=== PATIENT | male | born 1970 | race Caucasian/White ===

== ENCOUNTER 2021-02-02 19:59 | Inpatient (IN) ==
[2021-02-03] MEDS ORDERED: Artificial Tears SOLN 15 ML BOTTLE BOTH EYES PRN (01:15)
[2021-02-03] MEDS ORDERED: Naloxone 0.4 MG/ML INJ IVP PRN (01:20)
[2021-02-03] MEDS ORDERED: 0.9 % Sodium Chloride 1,000 ML ONE (01:21)
[2021-02-03] MEDS: FentaNYL (PF) 1,000 MCG/100 ML IV.SOLN IVC SCH ×4 (02:00→20:54)
[2021-02-03] MEDS: Cisatracurium 200 MG in 0.9 % Sodium Chloride 180 ML IVC SCH ×3 (02:00→23:07)
[2021-02-03] MEDS ORDERED: D5% in Water 1,000 ML IVC PRN (02:15)
[2021-02-03] MEDS ORDERED: Dextrose Gel 15 GM/37.5 ML TUBE PO PRN ×2 (02:15)
[2021-02-03] MEDS ORDERED: *HR* Dextrose 50 % in Water (Syg) 50 ML SYRINGE IVP PRN (02:15)
[2021-02-03] MEDS ORDERED: Dexmedetomidine HCl 400 MCG/100 ML MLS IVC ONE (02:18)
[2021-02-03] MEDS ORDERED: Insulin LISPRO 300 UNITS/3 ML VIAL SUBQ SCH (02:30)
[2021-02-03 02:37] LABS: Basophils # 0.1 K/mcL (0.0-0.2); Basophils % 0.5 %; Hematocrit 47.8 % (37.5-50.1); Immature Granulocytes % 4.3 % (0-4); Lymphocytes # 0.4 K/mcL (0.6-4.6); Lymphocytes % 4.1 %; Mean Corpuscular HGB Conc 31.4 g/dL (31.6-35.5); Mean Corpuscular Hemoglobin 27.8 pg (28.0-33.3); Mean Corpuscular Volume 88.5 fL (83.0-100.0); Mean Platelet Volume 9.4 fL (9.4-12.4); Monocytes # 1.5 K/mcL (0.0-1.3); Monocytes % 14.6 %; Neutrophils # 7.7 K/mcL (1.6-8.9); Platelet Count 271 K/mcL (140-400); Red Cell Distribution Width 13.1 % (11.5-14.5); Segmented Neutrophils % 76.5 %
[2021-02-03 02:45] LABS: VBG Ionized Calcium 1.09 mmol/L (1.15-1.35)
[2021-02-03 02:47] LABS: Prothrombin Time 11.1 Seconds (9.4-12.1)
[2021-02-03 02:49] LABS: Activated Partial Thrombo Time 27.8 Seconds (26.0-36.0)
[2021-02-03] MEDS: Dexmedetomidine HCl 400 MCG/100 ML MLS IVC SCH ×3 (02:55→20:53)
[2021-02-03 02:58] LABS: Albumin 3.4 g/dL (3.5-5.7); Albumin/Globulin Ratio 1.1 (1.1-2.2); Bilirubin,Direct 1.4 mg/dL (0.0-0.2); Bilirubin,Indirect 0.7 mg/dL (0.0-1.0); Bilirubin,Total 2.1 mg/dL (0.3-1.0); Globulin 3.1 g/dL (2.4-3.5); Total Protein 6.5 g/dL (6.4-8.9)
[2021-02-03 02:59] LABS: Alanine Aminotransferase 212 Units/L (7-52); Albumin 3.4 g/dL (3.5-5.7); Albumin/Globulin Ratio 1.1 (1.1-2.2); Alkaline Phosphatase 157 Units/L (34-104); Aspartate Amino Transferase 179 Units/L (13-39); BUN/Creatinine Ratio 23 (6-26); Bilirubin,Total 2.1 mg/dL (0.3-1.0); Blood Urea Nitrogen 31 mg/dL (6-20); Calcium 8.1 mg/dL (8.6-10.3); Carbon Dioxide 29 mEq/L (23-29); Chloride 100 mEq/L (98-107); Globulin 3.1 g/dL (2.4-3.5); Glucose 256 mg/dL (70-105); Magnesium 2.7 mg/dL (1.6-2.6); Osmolality,Calculated 299 (280-300); Phosphorous 3.9 mg/dL (2.7-4.5); Potassium 5.3 mEq/L (3.5-5.1); Sodium 137 mEq/L (136-145); Total Protein 6.5 g/dL (6.4-8.9); eGFR For African Americans > 60 (> 60); eGFR For Non-African Americans 57 (> 60)
[2021-02-03] MEDS: Calcium Gluconate 1gm/50mL 1 GM/50 ML BAG IVPB SCH ×2 (03:15→04:15)
[2021-02-03] MEDS: Insulin LISPRO 300 UNITS/3 ML VIAL SUBQ SCH ×6 (03:16→23:29)
[2021-02-03 03:43] LABS: ABG Base Excess 1 mEq/L (-2 to 3); ABG HCO3 27 mEq/L (21-27); ABG Oxygen Saturation 87 % (95-98); ABG PCO2 50 mmHg (35-45); ABG PH 7.35 pH Units (7.32-7.45); ABG PO2 57 mmHg (85-104); ABG TCO2 29 mEq/L (20-26); Blood Gas Modality ASSIST CONTROL; Blood Gas VT 450 cc
[2021-02-03] MEDS: Artificial Tears SOLN 15 ML BOTTLE BOTH EYES SCH ×6 (04:23→23:09)
[2021-02-03] MEDS ORDERED: Vancomycin 2,000 MG/520 ML IV.SOLN IVPB ONE (05:00)
[2021-02-03] MEDS: Norepinephrine 4 MG/254 ML IV.SOLN IVC SCH (05:25)
[2021-02-03 05:59] LABS: ABG Base Excess 1 mEq/L (-2 to 3); ABG HCO3 27 mEq/L (21-27); ABG Oxygen Saturation 99 % (95-98); ABG PCO2 48 mmHg (35-45); ABG PH 7.36 pH Units (7.32-7.45); ABG PO2 167 mmHg (85-104); ABG TCO2 28 mEq/L (20-26); Blood Gas Modality ASSIST CONTROL; Blood Gas VT 450 cc
[2021-02-03] MEDS ORDERED: Doxycycline 100 MG in 0.9 % Sodium Chloride Mini Bag 100 ML IVPB SCH (06:00)
[2021-02-03] MEDS: Chlorhexidine Rinse 15 ML MOUTHWASH MM SCH ×2 (07:52→20:49)
[2021-02-03] MEDS: Cefepime HCl 1,000 MG in 0.9 % Sodium Chloride Mini Bag 100 ML IVPB SCH ×3 (07:52→23:10)
[2021-02-03] MEDS: Pantoprazole 40 MG VIAL IVP SCH (07:53)
[2021-02-03] MEDS: Dexamethasone Sodium Phos/PF 10 MG/ML VIAL IVP SCH (09:29)
[2021-02-03] MEDS: Insulin DETEMIR 100 UNIT/ML X5UNITS SUBQ SCH (11:31)
[2021-02-03] MEDS: *HR* Enoxaparin 60 MG/0.6 ML SYRINGE SQ SCH ×2 (11:31→18:03)
[2021-02-03] MEDS ORDERED: Remdesivir 100 MG in 0.9 % Sodium Chloride 100 ML IVPB SCH (14:00)
[2021-02-03] MEDS ORDERED: cefTRIAXone 1,000 MG in 0.9 % Sodium Chloride Mini Bag 100 ML IVPB SCH (16:00)
[2021-02-03 18:24] LABS: Bilirubin,Urine Negative (Negative); Blood,Urine Negative (Negative); Clarity,Urine Clear (Clear); Color,Urine Yellow (Yellow); Glucose,Urine (UA) Normal (Normal); Ketones,Urine Negative (Negative); Leukocyte Esterase,Urine Negative (Negative); Nitrite,Urine Negative (Negative); PH,Urine 6.5 pH Units (5.0-8.0); Protein,Urine Trace mg/dL (Neg-Trace); Specific Gravity,Urine 1.026 (1.010-1.025); Urobilinogen,Urine Normal (Normal)
[2021-02-04] MEDS: Norepinephrine 4 MG/254 ML IV.SOLN IVC SCH (01:56)
[2021-02-04] MEDS: Dexmedetomidine HCl 400 MCG/100 ML MLS IVC SCH ×2 (02:32→09:04)
[2021-02-04] MEDS: Artificial Tears SOLN 15 ML BOTTLE BOTH EYES SCH ×5 (03:06→19:30)
[2021-02-04] MEDS: FentaNYL (PF) 1,000 MCG/100 ML IV.SOLN IVC SCH ×4 (03:06→21:58)
[2021-02-04 03:39] LABS: Alanine Aminotransferase 235 Units/L (7-52); Albumin 2.9 g/dL (3.5-5.7); Albumin/Globulin Ratio 1.1 (1.1-2.2); Alkaline Phosphatase 115 Units/L (34-104); Aspartate Amino Transferase 145 Units/L (13-39); BUN/Creatinine Ratio 37 (6-26); Bilirubin,Total 1.7 mg/dL (0.3-1.0); Blood Urea Nitrogen 36 mg/dL (6-20); C-Reactive Protein 18 mg/L (Less than 10); Calcium 7.9 mg/dL (8.6-10.3); Carbon Dioxide 25 mEq/L (23-29); Chloride 107 mEq/L (98-107); Globulin 2.6 g/dL (2.4-3.5); Glucose 204 mg/dL (70-105); Lactate Dehydrogenase 531 Units/L (140-271); Magnesium 2.9 mg/dL (1.6-2.6); Osmolality,Calculated 304 (280-300); Phosphorous 3.2 mg/dL (2.7-4.5); Potassium 4.6 mEq/L (3.5-5.1); Sodium 140 mEq/L (136-145); Total Protein 5.5 g/dL (6.4-8.9); eGFR For African Americans > 60 (> 60); eGFR For Non-African Americans > 60 (> 60)
[2021-02-04 03:47] LABS: Basophils % 0.3 %; Hematocrit 41.6 % (37.5-50.1); Immature Granulocytes % 2.4 % (0-4); Lymphocytes # 0.6 K/mcL (0.6-4.6); Mean Corpuscular HGB Conc 32.2 g/dL (31.6-35.5); Mean Corpuscular Volume 86.8 fL (83.0-100.0); Monocytes # 1.2 K/mcL (0.0-1.3); Monocytes % 13.8 %; Neutrophils # 6.9 K/mcL (1.6-8.9); Platelet Count 257 K/mcL (140-400); Red Blood Count 4.79 M/mcL (4.19-5.50); Red Cell Distribution Width 12.3 % (11.5-14.5); Segmented Neutrophils % 76.5 %
[2021-02-04 03:49] LABS: Hemoglobin 13.4 g/dL (12.9-16.9)
[2021-02-04 03:56] LABS: Ferritin > 1500 ng/mL (20-250)
[2021-02-04 03:57] LABS: Prothrombin Time 10.8 Seconds (9.4-12.1)
[2021-02-04] MEDS: Insulin LISPRO 300 UNITS/3 ML VIAL SUBQ SCH ×5 (03:57→19:31)
[2021-02-04 04:12] LABS: ABG Base Excess 2 mEq/L (-2 to 3); ABG HCO3 28 mEq/L (21-27); ABG Oxygen Saturation 89 % (95-98); ABG PCO2 48 mmHg (35-45); ABG PH 7.37 pH Units (7.32-7.45); ABG PO2 59 mmHg (85-104); ABG TCO2 29 mEq/L (20-26); Blood Gas Modality ASSIST CONTROL; Blood Gas VT 450 cc
[2021-02-04] MEDS: *HR* Enoxaparin 60 MG/0.6 ML SYRINGE SQ SCH ×2 (05:15→18:42)
[2021-02-04] MEDS ORDERED: Vancomycin 1,750 MG/517.5 ML IV.SOLN IVPB SCH (06:00)
[2021-02-04] MEDS: Cefepime HCl 1,000 MG in 0.9 % Sodium Chloride Mini Bag 100 ML IVPB SCH ×2 (07:39→15:39)
[2021-02-04] MEDS: Pantoprazole 40 MG VIAL IVP SCH (07:39)
[2021-02-04] MEDS: Dexamethasone Sodium Phos/PF 10 MG/ML VIAL IVP SCH (07:40)
[2021-02-04] MEDS: Chlorhexidine Rinse 15 ML MOUTHWASH MM SCH ×2 (07:40→19:34)
[2021-02-04] MEDS: Insulin DETEMIR 100 UNIT/ML X5UNITS SUBQ SCH (07:43)
[2021-02-04] MEDS: Cisatracurium 200 MG in 0.9 % Sodium Chloride 180 ML IVC SCH ×2 (09:59→21:57)
[2021-02-05] MEDS: Insulin LISPRO 300 UNITS/3 ML VIAL SUBQ SCH ×6 (00:28→19:48)
[2021-02-05] MEDS: Artificial Tears SOLN 15 ML BOTTLE BOTH EYES SCH ×7 (00:28→19:24)
[2021-02-05] MEDS: Cefepime HCl 1,000 MG in 0.9 % Sodium Chloride Mini Bag 100 ML IVPB SCH ×3 (00:33→16:49)
[2021-02-05] MEDS ORDERED: *HR* Labetalol 20 MG/4 ML SYRINGE IVP ONE ×2 (00:48→00:50)
[2021-02-05] MEDS: Norepinephrine 4 MG/254 ML IV.SOLN IVC SCH (03:42)
[2021-02-05 04:09] LABS: Basophils # 0.1 K/mcL (0.0-0.2); Basophils % 0.3 %; Hematocrit 44.2 % (37.5-50.1); Hemoglobin 14.9 g/dL (12.9-16.9); Immature Granulocytes % 2.4 % (0-4); Lymphocytes % 5.2 %; Mean Corpuscular HGB Conc 33.7 g/dL (31.6-35.5); Mean Corpuscular Hemoglobin 28.8 pg (28.0-33.3); Mean Corpuscular Volume 85.3 fL (83.0-100.0); Mean Platelet Volume 9.7 fL (9.4-12.4); Monocytes # 2.9 K/mcL (0.0-1.3); Monocytes % 14.3 %; Neutrophils # 15.6 K/mcL (1.6-8.9); Platelet Count 505 K/mcL (140-400); Red Blood Count 5.18 M/mcL (4.19-5.50); Red Cell Distribution Width 12.4 % (11.5-14.5); Segmented Neutrophils % 77.8 %
[2021-02-05 04:18] LABS: Prothrombin Time 11.2 Seconds (9.4-12.1)
[2021-02-05 05:14] LABS: ABG Base Excess 2 mEq/L (-2 to 3); ABG HCO3 27 mEq/L (21-27); ABG Oxygen Saturation 98 % (95-98); ABG PCO2 46 mmHg (35-45); ABG PH 7.39 pH Units (7.32-7.45); ABG PO2 113 mmHg (85-104); ABG TCO2 29 mEq/L (20-26); Blood Gas Modality ASSIST CONTROL; Blood Gas VT 450 cc
[2021-02-05] MEDS: *HR* Enoxaparin 60 MG/0.6 ML SYRINGE SQ SCH ×2 (05:17→16:51)
[2021-02-05 05:30] LABS: Alanine Aminotransferase 260 Units/L (7-52); Albumin 3.1 g/dL (3.5-5.7); Albumin/Globulin Ratio 1.2 (1.1-2.2); Alkaline Phosphatase 112 Units/L (34-104); Aspartate Amino Transferase 134 Units/L (13-39); BUN/Creatinine Ratio 38 (6-26); Bilirubin,Total 3.3 mg/dL (0.3-1.0); Blood Urea Nitrogen 40 mg/dL (6-20); C-Reactive Protein 11 mg/L (Less than 10); Calcium 7.9 mg/dL (8.6-10.3); Carbon Dioxide 25 mEq/L (23-29); Chloride 106 mEq/L (98-107); Ferritin > 1500 ng/mL (20-250); Globulin 2.6 g/dL (2.4-3.5); Glucose 134 mg/dL (70-105); Lactate Dehydrogenase 583 Units/L (140-271); Magnesium 2.8 mg/dL (1.6-2.6); Osmolality,Calculated 300 (280-300); Phosphorous 3.1 mg/dL (2.7-4.5); Potassium 4.7 mEq/L (3.5-5.1); Sodium 139 mEq/L (136-145); Total Protein 5.7 g/dL (6.4-8.9); eGFR For African Americans > 60 (> 60); eGFR For Non-African Americans > 60 (> 60)
[2021-02-05] MEDS: Insulin DETEMIR 100 UNIT/ML X5UNITS SUBQ SCH (09:19)
[2021-02-05] MEDS: Pantoprazole 40 MG VIAL IVP SCH (09:19)
[2021-02-05] MEDS: Chlorhexidine Rinse 15 ML MOUTHWASH MM SCH ×2 (09:19→19:26)
[2021-02-05] MEDS: Dexamethasone Sodium Phos/PF 10 MG/ML VIAL IVP SCH (09:19)
[2021-02-05] MEDS: FentaNYL (PF) 2,500 MCG/50 ML IV.SOLN IVC SCH ×2 (10:27→17:28)
[2021-02-05] MEDS: Cisatracurium 200 MG in 0.9 % Sodium Chloride 180 ML IVC SCH ×2 (11:20→18:55)
[2021-02-05] MEDS ORDERED: 0.9 % Sodium Chloride 1,000 ML IVC SCH (11:30)
[2021-02-05 11:58] LABS: ABG Base Excess 0 mEq/L (-2 to 3); ABG HCO3 23 mEq/L (21-27); ABG Oxygen Saturation 94 % (95-98); ABG PCO2 32 mmHg (35-45); ABG PH 7.46 pH Units (7.32-7.45); ABG PO2 64 mmHg (85-104); ABG TCO2 24 mEq/L (20-26); Blood Gas Modality ASSIST CONTROL; Blood Gas VT 450 cc
[2021-02-05] MEDS: Dexmedetomidine HCl 400 MCG/100 ML MLS IVC SCH (13:15)
[2021-02-05] MEDS: Midazolam HCl 50 MG/100 ML IV.SOLN IVC SCH (13:33)
[2021-02-06] MEDS: Insulin LISPRO 300 UNITS/3 ML VIAL SUBQ SCH ×4 (01:08→10:54)
[2021-02-06] MEDS: Cefepime HCl 1,000 MG in 0.9 % Sodium Chloride Mini Bag 100 ML IVPB SCH ×2 (01:11→08:11)
[2021-02-06] MEDS: Artificial Tears SOLN 15 ML BOTTLE BOTH EYES SCH ×4 (01:11→10:54)
[2021-02-06] MEDS: Cisatracurium 200 MG in 0.9 % Sodium Chloride 180 ML IVC SCH ×2 (02:18→10:46)
[2021-02-06] MEDS: Norepinephrine 4 MG/254 ML IV.SOLN IVC SCH (03:45)
[2021-02-06 04:22] LABS: Basophils % 0.3 %; Eosinophils # 0.1 K/mcL (0.0-0.6); Hemoglobin 12.4 g/dL (12.9-16.9); Immature Granulocytes % 3.4 % (0-4); Lymphocytes % 9.4 %; Mean Corpuscular HGB Conc 32.6 g/dL (31.6-35.5); Mean Corpuscular Hemoglobin 28.5 pg (28.0-33.3); Mean Corpuscular Volume 87.4 fL (83.0-100.0); Mean Platelet Volume 9.8 fL (9.4-12.4); Monocytes # 0.9 K/mcL (0.0-1.3); Platelet Count 289 K/mcL (140-400); Red Blood Count 4.35 M/mcL (4.19-5.50); Red Cell Distribution Width 12.4 % (11.5-14.5); Segmented Neutrophils % 76.9 %; White Blood Count 10.4 K/mcL (4.3-11.1)
[2021-02-06] MEDS: FentaNYL (PF) 2,500 MCG/50 ML IV.SOLN IVC SCH (04:26)
[2021-02-06 04:29] LABS: Prothrombin Time 11.3 Seconds (9.4-12.1)
[2021-02-06 04:40] LABS: ABG Base Excess 1 mEq/L (-2 to 3); ABG HCO3 26 mEq/L (21-27); ABG Oxygen Saturation 90 % (95-98); ABG PCO2 42 mmHg (35-45); ABG PO2 58 mmHg (85-104); ABG TCO2 27 mEq/L (20-26); Blood Gas Modality ASSIST CONTROL; Blood Gas VT 450 cc
[2021-02-06] MEDS: *HR* Enoxaparin 60 MG/0.6 ML SYRINGE SQ SCH (05:34)
[2021-02-06 05:47] LABS: Alanine Aminotransferase 188 Units/L (7-52); Albumin 2.5 g/dL (3.5-5.7); Albumin/Globulin Ratio 1.3 (1.1-2.2); Alkaline Phosphatase 79 Units/L (34-104); Aspartate Amino Transferase 72 Units/L (13-39); BUN/Creatinine Ratio 50 (6-26); Bilirubin,Total 1.6 mg/dL (0.3-1.0); Blood Urea Nitrogen 37 mg/dL (6-20); C-Reactive Protein 6 mg/L (Less than 10); Calcium 7.3 mg/dL (8.6-10.3); Carbon Dioxide 24 mEq/L (23-29); Chloride 110 mEq/L (98-107); Glucose 88 mg/dL (70-105); Lactate Dehydrogenase 346 Units/L (140-271); Magnesium 2.7 mg/dL (1.6-2.6); Osmolality,Calculated 298 (280-300); Phosphorous 3.8 mg/dL (2.7-4.5); Potassium 4.3 mEq/L (3.5-5.1); Sodium 140 mEq/L (136-145); Total Protein 4.5 g/dL (6.4-8.9); eGFR For African Americans > 60 (> 60); eGFR For Non-African Americans > 60 (> 60)
[2021-02-06 07:04] LABS: Ferritin > 1500 ng/mL (20-250)
[2021-02-06] MEDS: Chlorhexidine Rinse 15 ML MOUTHWASH MM SCH (08:11)
[2021-02-06] MEDS: Pantoprazole 40 MG VIAL IVP SCH (08:11)
[2021-02-06] MEDS: Dexamethasone Sodium Phos/PF 10 MG/ML VIAL IVP SCH (08:11)
[2021-02-06] MEDS ORDERED: Insulin DETEMIR 100 UNIT/ML X5UNITS SUBQ SCH (09:00)
[2021-02-06] MEDS: Midazolam HCl 50 MG/100 ML IV.SOLN IVC SCH (09:02)
[2021-02-06 11:09] LABS: VBG Ionized Calcium 1.13 mmol/L (1.15-1.35)
[2021-02-06 12:20] VITALS: TEMP 98.8
[2021-02-06 15:06] VITALS: BP 135/64; PULSE 63; O2SAT 95
== END 2021-02-06 15:48 | disposition short-term general hospital (02) | DRG 871 ==
LOC: ICNU 02-03 00:59
PROVIDERS: ADMIT Pediatrics; ATTEND Pediatrics